=== PATIENT | male | born 1955 | race African-American/Black ===

== ENCOUNTER 2019-03-23 15:29 | Emergency (ER) | payer MEDICAID ==
[~2019-03-23] VITALS: Ht 165.1 cm; Wt 81.8 kg
[~2019-03-23 15:29] MED LIST: NALOXONE 2 MG SYG ONE
[2019-03-23 15:42] VITALS: Ht 165.1 cm; Wt 81.8 kg
[2019-03-23] MEDS ORDERED: PHEN300C2 PO (17:08)
[2019-03-23] MEDS ORDERED: ALBU18HF INHALATION (17:09)
--- NOTE | 2019-03-23 18:11 | ERD ---
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 The patient arrived from the ambulance bay in his friend's car who reported that he was not breathing. The patient was apneic, but he did have a pulse. The patient's history and physical was limited initially secondary to unresponsiveness. After being given Narcan, the patient mentation resolved. The patient reports that he usually snorts heroin, but today was the first time that he injected heroin. The patient denies feeling sick recently. The patient denies fever or chills. The patient has had no headache or vision changes. The patient does not endorse neck or back pain. The patient denies lightheadedness or dizziness. The patient has had no chest pain or trouble breathing. The patient denies nausea or vomiting. The patient denies abdominal pain. The patient denies changes to bowel movements or urination. The patient has had no focal deficits. The patient has had no weakness or numbness or tingling to the face or extremities. ROS All systems reviewed and are negative except as per history of present illness. Medications Home Meds Reported Medications Albuterol Sulfate* (Ventolin HFA*) 18 Gm Hfa.aer.ad, 2 PUFF INHALATION Q6H, #1 INHALER 03/23/19 Phenytoin* Sodium Extended (Dilantin*) 300 Mg Capsule, 300 MG PO HS, CAP 03/23/19 Allergies Allergies: Coded Allergies: Penicillins (Unverified Allergy, Unknown, 03/23/19) aspirin (Unverified Allergy, Unknown, 03/23/19) PMhx/Soc Medical and Surgical Hx: pt denies Medical Hx History of Surgery: Yes (left eye sx) Anesthesia Reaction: No Hx Neurological Disorder: No Hx Respiratory Disorders: No Hx Cardiac Disorders: No Hx Psychiatric Problems: No Hx Miscellaneous Medical Probl: No Hx Alcohol Use: Yes Hx Substance Use: Yes Hx Tobacco Use: Yes Smoking Status: Never smoker FmHx Family History: No diabetes Physical Exam Vitals Vital Signs Date Temp Pulse Resp B/P (MAP) Pulse Ox O2 O2 Flow FiO2 Time Delivery Rate 03/23/19 98.0 103 18 153/91 97 Room Air 17:15 (111) 03/23/19 97.9 98 16 132/74 100 15:42 (93) Physical Exam Const: Unresponsive Head: Normocephalic, Atraumatic Eyes: Right eye: Normal conjunctiva, pinpoint pupil. No left eye. ENT: Normal External Ears, Nose and Mouth. Neck: Trachea midline Resp: Agonal breathing Cardio: Regular rate and rhythm. No murmurs, rubs or gallops Abd: Soft, non tender, non distended. Normal bowel sounds Skin: No petechiae or rashes Ext: No cyanosis, or edema Neur: Unresponsive. No movement to painful stimulus. Eyes do not open. No verbal response. GCS 3. Result Diagram: 03/23/19 1549 03/23/19 1549 Results 24 hrs Laboratory Tests Test 03/23/19 15:49 White Blood Count 8.0 10^3/ul Red Blood Count 4.48 10^6/ul Hemoglobin 13.4 g/dl Hematocrit 40.7 % Mean Corpuscular Volume 90.8 fl Mean Corpuscular Hemoglobin 29.9 pg Mean Corpuscular Hemoglobin Concent 32.9 g/dl Red Cell Distribution Width 12.3 % Platelet Count 254 10^3/UL Mean Platelet Volume 9.6 fl Immature Granulocytes % 0.400 % Neutrophils % 48.9 % Lymphocytes % 40.5 % Monocytes % 7.8 % Eosinophils % 1.9 % Basophils % 0.5 % Nucleated Red Blood Cells % 0.0 /100WBC Immature Granulocytes # 0.030 10^3/ul Neutrophils # 3.9 10^3/ul Lymphocytes # 3.2 10^3/ul Monocytes # 0.6 10^3/ul Eosinophils # 0.2 10^3/ul Basophils # 0.0 10^3/ul Nucleated Red Blood Cells # 0.0 10^3/ul Sodium Level 140 mmol/L Potassium Level 3.2 mmol/L Chloride Level 106 mmol/L Carbon Dioxide Level 20 mmol/L Anion Gap 14 Blood Urea Nitrogen 10 mg/dl Creatinine 0.82 mg/dl Est Glomerular Filtrat Rate mL/min > 60 mL/min Glucose Level 131 mg/dl Calcium Level 9.0 mg/dl Total Bilirubin 0.4 mg/dl Direct Bilirubin 0.00 mg/dl Indirect Bilirubin 0.4 mg/dl Aspartate Amino Transf (AST/SGOT) 93 IU/L Alanine Aminotransferase (ALT/SGPT) 60 IU/L Alkaline Phosphatase 79 IU/L Total Protein 7.6 g/dl Albumin 4.2 g/dl Globulin 3.40 g/dl Albumin/Globulin Ratio 1.23 Salicylates Level < 1.0 mg/dl Acetaminophen Level < 10.0 ug/ml Ethyl Alcohol Level 108.0 mg/dl Procedures/MDM MDM The patient's presentation warrants further investigation. Previous medical records, if available, were reviewed. LABS The patient's laboratory testing was obtained and reviewed. No emergent treatment was required unless described below. CBC: Normocytic anemia, not emergent. No E/o systemic infection or thrombocytopenia Chemistry: No E/o severe alkalosis or renal failure or liver disease or diabetic ketoacidosis. Mild anion gap metabolic acidosis, likely related to his brief hypoxic event. Hypokalemia, not emergent. Tox: E/o alcohol abuse. TREATMENT/DISPOSITION The patient presents for a heroin overdose. The patient was initially unresponsive with a GCS of 3. There is consideration to intubate the patient for airway protection. Prior to this, the patient was given Narcan with immediate and appropriate response. The patient was reassessed after his return to baseline with a reassuring physical exam. The patient expresses remorse. He did not intend to overdose today. He is already reached out to family to let them know what happened today. He has resources for rehabilitation already and he intends to go into rehab. He understands how severe the situation was today. He understands that he could have . An alternative etiology of his unresponsiveness was considered. The patient has a reassuring physical exam. The patient is not clinically orthostatic. The patient is not dizzy. I have decreased suspicion for vertigo. The patient has no signs of emergent or symptomatic anemia. The patient does not have any emergent electrolyte or metabolic emergencies. I have decrease suspicion for a thyroid disorder. The patient is not toxic appearing. I have decreased suspicion for an infectious etiology of symptoms. I have low suspicion for acute coronary syndrome. I do not see evidence of any emergent cardiac arrhythmia. The patient has no heart murmurs or rales. I have low suspicion for hypertrophic cardiomyopathy. I do not see evidence of CHF. The patient does not endorse any chest or pleuritic pain. The history is negative for bleeding or clotting disorders. The patient has not been involved in any recent prolonged trips or surgeries or hospitalizations. The patient has no calf tenderness or swelling. I have decreased suspicion for PE as the etiology of symptoms. The patient has no focal deficits. The neurologic exam is reassuring. I have decreased suspicion for cerebral ischemia. There was no trauma or injury. There is no personal or family history of cerebral aneurysm. I have decreased suspicion for SAH or other ICH. I have low suspicion for temporal arteritis, cavernous venous thrombosis, subdural hematoma, epidural hematoma, meningitis. The patient was observed for 2 to 3 hours without any recurrence of symptoms. The patient maintained his alertness. I do not suspect recurrence of respiratory depression or lethargy or unresponsiveness. The patient does not have any evidence concerning for pulmonary edema. DISCHARGE Upon reevaluation of the patient, symptoms have improved. No emergent diagnoses were identified. At this time, I feel that the patient stable for discharge. The patient was instructed to follow-up with a primary care physician in 1-3 days. The patient will be given strict precautions with which to return to the emergency department. Prescriptions: Narcan The patient's blood pressure was elevated at greater than 120/80 while in the emergency department. The patient was otherwise stable with no evidence of hypertensive urgency or emergency. The patient does not require admission for blood pressure control. I have discussed with the patient the risks of hypertension. I have instructed the patient to return to the ER for any new or worsening symptoms including chest pain, shortness of breath, headache, blurred vision, confusion, nausea, vomiting or LOC. I have advised the patient to follow up with the primary care physician for outpatient monitoring and treatment for hypertension in 1-3 days. Disclaimer: Inadvertent spelling and grammatical errors are likely due to EHR/dictation software use and do not reflect on the overall quality of patient care. Note that the electronic time recorded on this note does not necessarily reflect the actual time of the patient encounter. Departure Diagnosis: Primary Impression: Heroin overdose Encounter type: initial encounter Injury intent: accidental or unintentional Qualified Codes: T40.1X1A - Poisoning by heroin, accidental (unintentional), initial encounter Additional Impressions: Normocytic anemia Hypokalemia High anion gap metabolic acidosis Alcohol intoxication Complication of substance-induced condition: uncomplicated Qualified Codes: F10.920 - Alcohol use, unspecified with intoxication, uncomplicated Condition: Stable Patient Instructions: Alcohol Intoxication, Anemia, Hypokalemia, Overdose, Accidental (Adult), Overdose, Opiate Additional Instructions: Thank you for for coming to [facility] for your care today. Please ask your nurse or provider if you have questions about your care today and do not leave until all your questions have been answered. Please use any medications given as directed and follow-up with your doctor (or the doctor you were referred to) in the next 1-3 days. If you do not have a primary care doctor you may follow up at the [facility] or [facility] clinic (listed below). You may also use motrin and tylenol as needed for fever and/or pain unless instructed otherwise by your provider or nurse. Indications for more urgent follow-up have been discussed, but you may return to the Emergency Department at ANY time for any worrisome or worsening symptoms. If you have abdominal pain, please know that no test or exam you received is p erfect and you should follow up within 8 hours for continued pain. If you had any imaging studies today, such as an X-Ray or CT Scan, these studies will be reviewed later by a radiologist. You will be called if there are important findings that were not identified today, so make sure the contact in formation you provided at registration is correct. If you received any narcotic pain control medicine today, such as Vicodin, Morphine or Dilaudid, your coordination and judgment may be affected for a number of hours. Please do not drive or operate heavy machinery, and you may want someone to assist you at home. If you were given a prescription for narcotic medication, be aware that it is very addictive- use sparingly and only if necessary. PLEASE SEEK FURTHER EVALUATION AND MANAGEMENT AT YOUR DOCTORS OFFICE WITHIN THE NEXT 1-3 DAYS. IT IS YOUR RESPONSIBILITY TO MAKE AN APPOINTMENT FOR FOLOW-UP CARE. IF YOU HAVE A PRIMARY DOCTOR, PLEASE CALL THEIR OFFICE TO SCHEDULE AN APPOINTMENT FOR FOLLOW UP. IF YOU DO NOT HAVE A PRIMARY DOCTOR YOU CAN CALL OUR PHYSICIAN REFERRAL HOTLINE AT IF YOU CAN NOT AFFORD TO SEE A PHYSICIAN YOU CAN CHOSE FROM THE FOLLOWING [facility]: [facility] [address] [facility] [address] [facility]. [facility] [address] [facility] [address] [facility] [address] [facility] [facility]. [address] MD March 23, 2019 18:07
[2019-03-23 18:33] VITALS: BP 146/87; PULSE 98; RESP 16
[2019-03-23] MEDS ORDERED: NALO4SPR NS (18:43)
== END 2019-03-23 18:44 | disposition home or self-care (01) ==
LOC: E/R 15:29
DX: T40.1X1A Poisoning by heroin, accidental (unintentional), initial encounter (principal); E87.6 Hypokalemia; E87.2 Acidosis; I10 Essential (primary) hypertension; J45.909 Unspecified asthma, uncomplicated; D64.9 Anemia, unspecified; R40.2112 Coma scale, eyes open, never, at arrival to emergency department; R40.2312 Coma scale, best motor response, none, at arrival to emergency department; R40.2212 Coma scale, best verbal response, none, at arrival to emergency department; F10.920 Alcohol use, unspecified with intoxication, uncomplicated; Z87.891 Personal history of nicotine dependence
CPT/HCPCS: 80053; 80307; 85025; J2310; Z7502; 99283